=== PATIENT | female | born 1980 | race Caucasian/White ===

== ENCOUNTER 2017-08-18 08:38 | Emergency (ER) | payer MEDICAID, OTHER | END 2017-08-18 10:59 | disposition home or self-care (01) | LOC: E/R 08:38 | DX: N30.90 Cystitis, unspecified without hematuria (principal) | CPT/HCPCS: 71045; 81025; 93005; 99284-25 ==

== ENCOUNTER 2018-09-16 11:12 | Emergency (ER) | payer SELFPAY, MEDICAID ==
[2018-09-16] MEDS: KETOROLAC 60 MG INJ IM (12:03)
[2018-09-16 12:09] LABS: ADD UMIC YES; UR ASCORBIC ACID NEGATIVE (NEGATIVE); UR BACTERIA FEW /HPF (NONE SEEN); UR BILIRUBIN (Dip) NEGATIVE (NEGATIVE); UR BLOOD (Dip) 1+ mg/dL (NEGATIVE); UR CLARITY SLIGHTLY CLOUDY (CLEAR); UR COLOR YELLOW (YELLOW); UR GLUCOSE (Dip) NEGATIVE (NEGATIVE); UR KETONES (Dip) NEGATIVE (NEGATIVE); UR LEUKOCYTE ESTERASE (Dip) NEGATIVE Leu/ul (NEGATIVE); UR NITRITE (Dip) NEGATIVE (NEGATIVE); UR RBC 2 /HPF (0-5); UR SPECIFIC GRAVITY (Dip) 1.008 (1.003-1.030); UR SQUAMOUS EPITHELIAL CELL FEW /HPF (FEW); UR TOTAL PROTEIN (Dip) NEGATIVE (NEGATIVE); UR UROBILINOGEN (Dip) NEGATIVE (NEGATIVE); UR WBC 1 /HPF (0-5)
== END 2018-09-16 13:17 | disposition home or self-care (01) ==
LOC: FTE 11:12
DX: M54.5 Low back pain (principal); R05 Cough
CPT/HCPCS: 81001; 81025; 96372; 99284-25